=== PATIENT | male | born 1945 | race Caucasian/White ===

== ENCOUNTER 2017-01-19 16:30 | Emergency (ER) | payer MEDICARE ==
--- NOTE | 2017-01-24 23:43 | ER ---
ADMIT: 01/19/2017 RM/LOC: [facility] MR#: [id number] [facility] [address] [place], [place] [id number] STEVE KING [address] [place] [address] Emergency Room Report SEX: M AGE: 71 : 1945 DATE: 01/19/2017 TIME: 1630 hours. Please refer to my T-sheet for complete H and P. Briefly, the patient is a 71-year-old who was sent over here. While giving platelets, they noticed his irregular heart beat. They did an EKG and sent him over for what they thought was a second-degree AV block. The patient has absolutely no symptoms. Says he feels fine. He just went in to get platelets. He does not take any medications. He has had no heart history. He has not fell weak. No exertional dyspnea. No chest pain. No complaints whatsoever. PHYSICAL EXAMINATION: VITAL SIGNS: Blood pressure 150/89, pulse 60, respirations 12, temperature 97.8, and saturating 99%. GENERAL: He is in no acute distress. HEENT: Grossly normal. LUNGS: Clear. HEART: Regular with a few extrasystoles. ABDOMEN: Soft. SKIN: No rash. EMERGENCY DEPARTMENT COURSE: I reviewed his CBC and his electrolytes in the outside facility [facility] the [place], they were normal. EKG here was sinus rhythm, rate 69 with PACs that he was asymptomatic with. I showed to our release and technical records clerk, he agreed this is nothing emergent to continue to workup at this time. Recommended he follow up. The patient felt comfortable. We are going to do a Holter monitor in following up. ASSESSMENT: [facility] the [facility] with no symptoms. PLAN: A 48-hour Holter. [facility] with [facility]. Justice Bey MD/ modl JOB #: [id number] CC: Justice Bey MD, Attending Physician [facility] Physician, Family Physician
== END 2017-01-19 18:10 | disposition home or self-care (01) ==
LOC: ER 16:30
DX: R00.2 Palpitations (principal); E78.5 Hyperlipidemia, unspecified; J44.9 Chronic obstructive pulmonary disease, unspecified